=== PATIENT | female | born 1980 | race American Indian/Alaskan Native ===

== ENCOUNTER 2017-05-18 09:21 | Emergency (ER) | payer MEDICAID ==
[2017-05-18 10:24] VITALS: BP 152/96
--- NOTE | 2017-05-18 11:56 | Emergency Department Report ---
Blank Doc - Documentation Documentation: Patient is a 37-year-old female who is presenting with several problems today. Problem #1 is the patient was leaning over 4 days ago doing her daughter's hair and has some back pain where she feels very stiff at times. Patient has been unable to work. Second problem is that the patient has pelvic discomfort and has not had a menses in several months. Patient did not get her double shot in February but is still not had a period as of yet. Third problem is that the patient states that she's had some vaginal discharge. Her partner was diagnosed with chlamydia however he did not get treatment and patient subsequently has been re-infected since he did not get treatment when he was supposed to. Patient removed to a treatment area where she can receive a pelvic exam urinalysis and test will be done as well.
[2017-05-18] MEDS ORDERED: MOTRIN PO ONE ×2 (11:57→12:39)
[2017-05-18 12:31] LABS: HCG Qualitative,Urine Negative (Negative)
[2017-05-18 12:35] LABS: Bacteria,Urine 2+ /HPF (Negative); Bilirubin,Urine NEG (Negative); Blood,Urine MOD (Negative); Color,Urine Red (Yellow); Mucus,Urine FEW /HPF; Nitrite,Urine POS (Negative); Protein,Urine <15 mg/dL mg/dL (Negative); Urobilinogen,Urine < 2.0 mg/dL (<2.0)
--- NOTE | 2017-05-18 12:44 | Emergency Department Report ---
ED Female HPI - General Chief complaint: Back Pain/Injury Stated complaint: BACK/PELVIC PAIN Time Seen by Provider: 05/18/17 11:42 Source: patient Mode of arrival: Ambulatory Limitations: No Limitations - History of Present Illness Initial comments: 37-year-old Afro-[place] female comes in complaint that I have chronic back pain and pelvic pain since Wednesday. Patient reports that she has back pain after bending over to break her daughter for about 45 minutes now she is having pain. Patient also complains of pelvic pain that started 2 weeks ago. Patient reports that she was getting Depo and missed her last injection in February. Patient reports that she has had no menses since she initially started on Depakote which was last June 2016. Patient reports that she tested positive for chlamydia was treated her partner reported that he was treated and patient was reinfected by partner. Patient has a past medical history of sarcoidosis she currently takes no medications has no known drug allergies her primary care doctor is Dr. Maeve Kent at [facility]. She has been taken albuterol 800 times twice a day for 1 day. She's been using a hot shower and icy hot. Without much relief. MD Complaint: vaginal discharge, pelvic pain, possible STD Radiation: non-radiating Severity scale (0 -10): 8 Quality: sharp Consistency: constant Are you Now?: No Associated Symptoms: vaginal discharge. denies: nausea/vomiting, fever/chills - Related Data Sexually active: Yes Previous Rx's Medication Instructions Recorded Last Taken Type Acetaminophen/Codeine 1 tab PO Q6H PRN #14 tab 12/01/13 06/20/15 Rx [Acetaminophen-Codeine #3 TAB] Amoxicillin [Trimox CAP] 500 mg PO Q8H #30 capsule 12/01/13 06/20/15 Rx Nitrofurantoin [place]/M-Cryst 100 mg PO Q12HR #14 capsule 06/13/15 06/20/15 Rx [Macrobid CAP] Dicyclomine [Bentyl] 20 mg PO QID PRN #60 tablet 06/21/15 Unknown Rx Ondansetron [Zofran ODT TAB] 8 mg PO Q8HR PRN #30 tab.rapdis 06/21/15 Unknown Rx oxyCODONE [Roxicodone TAB] 5 mg PO Q6HR PRN #30 tablet 06/21/15 Unknown Rx Ibuprofen [Motrin 800 MG tab] 800 mg PO TID PRN #30 tablet 05/18/17 Unknown Rx Nitrofurantoin Monohyd/M-Cryst 100 mg PO BID #20 capsule 05/18/17 Unknown Rx [Macrobid 100 mg Capsule] Allergies Allergy/AdvReac Type Severity Reaction Status Date / Time No Known Allergies Allergy Unverified 12/01/13 17:08 ED Review of Systems ROS: Stated complaint: BACK/PELVIC PAIN Other details as noted in HPI Constitutional: denies: chills, fever Eyes: denies: eye pain, eye discharge, vision change ENT: denies: ear pain, throat pain Respiratory: denies: cough, shortness of breath, wheezing Cardiovascular: denies: chest pain, palpitations Endocrine: no symptoms reported Gastrointestinal: denies: abdominal pain, nausea, diarrhea Genitourinary: denies: urgency, dysuria, discharge Musculoskeletal: back pain Skin: denies: rash, lesions Neurological: denies: headache, weakness, paresthesias Psychiatric: denies: anxiety, depression Hematological/Lymphatic: denies: easy bleeding, easy bruising ED Past Medical Hx - Past Medical History Hx Hypertension: No Hx Diabetes: No Hx Deep Vein Thrombosis: No Hx Renal Disease: No Hx Sickle Cell Disease: No Hx Seizures: No Hx Asthma: No Hx HIV: No Additional medical history: ovarian cysts. sarcoidosis - Surgical History Additional Surgical History: csection- - Social History Smoking Status: Never Smoker Substance Use Type: None - Medications Home Medications: Home Medications Medication Instructions Recorded Confirmed Last Taken Type Acetaminophen/Codeine 1 tab PO Q6H PRN #14 tab 12/01/13 06/20/15 06/20/15 Rx [Acetaminophen-Codeine #3 TAB] Amoxicillin [Trimox CAP] 500 mg PO Q8H #30 capsule 12/01/13 06/20/15 06/20/15 Rx Nitrofurantoin [place]/M-Cryst 100 mg PO Q12HR #14 capsule 06/13/15 06/20/15 Rx [Macrobid CAP] Dicyclomine [Bentyl] 20 mg PO QID PRN #60 tablet 06/21/15 Unknown Rx Ondansetron [Zofran ODT TAB] 8 mg PO Q8HR PRN #30 tab.rapdis 06/21/15 Unknown Rx oxyCODONE [Roxicodone TAB] 5 mg PO Q6HR PRN #30 tablet 06/21/15 Unknown Rx Ibuprofen [Motrin 800 MG tab] 800 mg PO TID PRN #30 tablet 05/18/17 Unknown Rx Nitrofurantoin Monohyd/M-Cryst 100 mg PO BID #20 capsule 05/18/17 Unknown Rx [Macrobid 100 mg Capsule] ED Physical Exam - General Limitations: No Limitations - Head Head exam: Present: atraumatic, normocephalic - Eye Eye exam: Present: normal appearance - ENT ENT exam: Present: mucous membranes moist - Neck Neck exam: Present: normal inspection - Respiratory Respiratory exam: Present: normal lung sounds bilaterally. Absent: respiratory distress - GI/Abdominal GI/Abdominal exam: Present: soft, normal bowel sounds - Back Exam Back exam: Present: normal inspection, full ROM, CVA tenderness (L), muscle spasm - Neurological Exam Neurological exam: Present: alert, oriented X3 - Psychiatric Psychiatric exam: Present: normal affect, normal mood - Skin Skin exam: Present: warm, dry, intact, normal color. Absent: rash ED Course Vital Signs 05/18/17 10:20 Temperature 98.3 F Pulse Rate 81 Respiratory 18 Rate Blood Pressure 152/96 O2 Sat by Pulse 100 Oximetry ED Medical Decision Making - Medical Decision Making History it's been evaluated by this provider as well as Dr. Justin medical records auditor. HCG GC chlamydia wet prep urine hCG was ordered. Patient has a negative hCG. We will go ahead and give patient ibuprofen 800 mg for her back. Patient has not needed any imaging she has had no trauma to the back. Discussed the patient we will treat her for gonorrhea chlamydia and based on the wet prep was treated accordingly. Patient verbalized understanding. Patient's wet prep is negative for Trichomonas and bacterial vaginosis and candidiasis. Critical care attestation.: If time is entered above; I have spent that time in minutes in the direct care of this critically ill patient, excluding procedure time. ED Disposition Clinical Impression: Exposure to STD UTI (urinary tract infection) Qualifiers: Urinary tract infection type: site unspecified Hematuria presence: with hematuria Qualified Code(s): N39.0 - Urinary tract infection, site not specified ; R31.9 - Hematuria, unspecified; R31.9 - Hematuria, unspecified Disposition: - TO HOME OR SELFCARE Is pt being admited?: No Does the pt Need Aspirin: No Condition: Stable Instructions: Chlamydia Infection (ED), Sexually Transmitted Diseases (ED), Urinary Tract Infection in Women (ED) Additional Instructions: Please inform your partner that she had been treated for STDs. Recommended not have sexual encounter a lesser partners been treated. Follow-up with your primary care provider for your back pain. Prescriptions: Ibuprofen [Motrin 800 MG tab] 800 mg PO TID PRN #30 tablet PRN Reason: Pain Nitrofurantoin Monohyd/M-Cryst [Macrobid 100 mg Capsule] 100 mg PO BID #20 capsule Referrals: PRIMARY CARE, [Primary Care Provider] - 3-5 Days [facility] [Provider Group] - 3-5 Days Forms: Work/School Release Form(ED)
[2017-05-18] MEDS ORDERED: ZITHROMAX PO ONE (13:25)
[2017-05-18] MEDS ORDERED: XYLOCAINE 1% MPF 5 mL INFILTRATI ONE (13:25)
[2017-05-18] MEDS ORDERED: ROCEPHIN IM ONE (13:25)
== END 2017-05-18 14:01 | disposition home or self-care (01) ==
LOC: ED 09:21
DX: N39.0 Urinary tract infection, site not specified (principal); R31.9 Hematuria, unspecified; Z20.2 Contact with and (suspected) exposure to infections with a predominantly sexual mode of transmission; N83.299 Other ovarian cyst, unspecified side
CPT/HCPCS: 81001; 81025; 87210; 87591; 96372; 99284; J0696